=== PATIENT | female | born 1985 | race Hispanic/Latino ===

== ENCOUNTER 2025-06-08 13:40 | Emergency (ER) | payer MEDICAID, OTHER ==
[~2025-06-08] VITALS: Ht 160 cm; Wt 79.4 kg
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
[2025-06-08] MEDS ORDERED: KETO10TA2 PO (15:09)
[2025-06-08] MEDS ORDERED: CYCL10TA16 PO (15:09)
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
[2025-06-08 15:11] VITALS: BP 121/65; PULSE 70; RESP 16; TEMP 98.1; O2SAT 98
[2025-06-08] MEDS: ORPHENADRINE 60MG/2ML IM ONE (15:13)
== END 2025-06-08 15:23 | disposition home or self-care (01) ==
LOC: EDH 13:40
DX: S16.1XXA Strain of muscle, fascia and tendon at neck level, initial encounter (principal); R51.9 Headache, unspecified; Z91.048 Other nonmedicinal substance allergy status; V49.9XXA Car occupant (driver) (passenger) injured in unspecified traffic accident, initial encounter; Y93.89 Activity, other specified; Y92.488 Other paved roadways as the place of occurrence of the external cause; Y99.8 Other external cause status
CPT/HCPCS: 99285; 70450; 72125; 96372 ×2; J1885; J2360

== ENCOUNTER 2025-06-09 09:51 | Emergency (ER) | payer OTHER ==
[~2025-06-09] VITALS: Ht 160 cm; Wt 78.9 kg
[2025-06-09 09:51] VITALS: BP 127/60; PULSE 70; RESP 16; TEMP 98
[~2025-06-09 09:51] MED LIST: CYCL10TA16 PO; KETO10TA2 PO
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
== END 2025-06-09 10:04 | disposition home or self-care (01) ==
LOC: EDH 09:51
DX: S16.1XXA Strain of muscle, fascia and tendon at neck level, initial encounter (principal); Z91.048 Other nonmedicinal substance allergy status; V89.0XXA Person injured in unspecified motor-vehicle accident, nontraffic, initial encounter; Y93.9 Activity, unspecified; Y92.89 Other specified places as the place of occurrence of the external cause; Y99.8 Other external cause status
CPT/HCPCS: 99282